=== PATIENT | male | born 1990 | race Caucasian/White ===

== ENCOUNTER 2017-01-18 01:31 | Emergency (ER) | payer OTHER ==
[~2017-01-18] VITALS: Ht 177.8 cm; Wt 77.1 kg
[2017-01-18] MEDS ORDERED: MORPHINE SULF INJ 2 MG/ML SYRINGE 1ML ONE (04:52)
[2017-01-18] MEDS ORDERED: ONDANSETRON HCL 4 MG/2 ML VIAL ONE (04:56)
[2017-01-18] MEDS ORDERED: MORPHINE SULF INJ 2 MG/ML SYRINGE 1ML IV ONE (05:00)
[2017-01-18] MEDS ORDERED: TETANUS-DIPTH-ACEL PERTUSSIS 0.5ML SYRG IM ONE (05:15)
[2017-01-18] MEDS ORDERED: cefTRIAXone 1GM/50ML D5W 50 ML IV ONE (05:15)
[2017-01-18] MEDS ORDERED: NEOMYCIN-BACITRACIN-POLYM UNITDOSE PKG TOP OINT TOP ONE (05:15)
[2017-01-18] MEDS ORDERED: BACITRACIN-POLYMYXIN B TOPICAL OINT UD TOP ONE (05:28)
[2017-01-18] MEDS ORDERED: ONDANSETRON HCL 4 MG/2 ML VIAL IV ONE (05:30)
[2017-01-18 05:33] VITALS: BP 130/50
== END 2017-01-18 06:25 | disposition home or self-care (01) ==
LOC: EDBD 01:31 → ER 01:38
DX: S92.354A Nondisplaced fracture of fifth metatarsal bone, right foot, initial encounter for closed fracture (principal); S61.214A Laceration without foreign body of right ring finger without damage to nail, initial encounter; V48.5XXA Car driver injured in noncollision transport accident in traffic accident, initial encounter; Y93.I9 Activity, other involving external motion; Y99.8 Other external cause status; Y92.89 Other specified places as the place of occurrence of the external cause; Z23 Encounter for immunization
CPT/HCPCS: 12042; 29515; 73140; 73630; 90471; 90715; 96365; 96375; 99284; J0696; J2270; J2405; 29125

== ENCOUNTER 2023-10-16 00:22 | Emergency (ER) | payer MEDICAID, OTHER ==
[~2023-10-16] VITALS: Ht 182.9 cm; Wt 100.0 kg
[2023-10-16 02:48] LABS: Basophils # (auto) 0.1 10 ^3/uL (0-0.2); Basophils % (auto) 0.5 % (0.0-2.0); Eosinophils # (auto) 0.3 10 ^3/uL (0-0.8); Eosinophils % (auto) 2.7 % (0.0-7.0); Lymphocytes # (auto) 4.4 10 ^3/uL (0.4-5.4); Lymphocytes % (auto) 44.4 % (10.0-50.0); Mean Corpuscular Hemoglobin 30.1 pg (28.0-32.0); Mean Corpuscular Hgb Conc. 34.9 g/dL (32.0-36.0); Mean Corpuscular Volume 86.3 fL (80.0-100.0); Neutrophils # (auto) 4.2 10 ^3/uL (1.6-8.6); Neutrophils % (auto) 42.4 % (37.0-80.0); Nucleated Red Blood Cells % 0.2 %; Red Blood Cells 5.33 10^6/uL (4.5-5.90); Red Cell Distribution Width 13.1 % (11.8-14.3)
[2023-10-16 03:02] LABS: Alanine Aminotransferase 69 U/L (7-40); Albumin 4.4 g/dL (3.2-4.8); Alkaline Phosphatase 94 U/L (46-116); Anion Gap 6 (5-15); Aspartate Aminotransferase 36 U/L (13-40); BUN/Creatinine Ratio 13.5 (10.0-20.0); Bilirubin, Total 0.4 mg/dL (0.2-1.0); Blood Urea Nitrogen 13 mg/dL (9-23); Calcium 9.5 mg/dL (8.7-10.4); Carbon Dioxide 28 mmol/L (20-30); Chloride 105 mmol/L (98-107); Glucose 140 mg/dL (74-106); Lipase 49 U/L (12-53); Potassium 3.6 mmol/L (3.5-5.1); Sodium 139 mmol/L (136-145)
[2023-10-16 03:03] LABS: Total Protein 6.9 g/dL (5.7-8.2)
[2023-10-16] MEDS: METOCLOPRAMIDE HCL 5MG/ml INJ 2ml VIAL IV ONE (04:20)
[2023-10-16] MEDS: SODIUM CHLORIDE 0.9% 1,000 ML IVB ONE (04:20)
[2023-10-16 04:21] LABS: Partial Thromboplastin Time 25.6 SEC (24.5-34.5); Prothrombin Time 10.6 sec (9.3-11.8)
[2023-10-16] MEDS: MORPHINE SULFATE 4 MG/ML SYR/VIAL IV ONE (04:22)
[2023-10-16] MEDS ORDERED: ACET500T58 PO (04:55)
[2023-10-16] MEDS ORDERED: IBUP-1456 PO (04:55)
[2023-10-16 05:16] VITALS: BP 134/89; PULSE 73; RESP 16; TEMP 97.9; O2SAT 97
== END 2023-10-16 05:16 | disposition home or self-care (01) ==
LOC: ER 00:22
DX: R10.32 Left lower quadrant pain (principal)
CPT/HCPCS: 36415; 74176; 80053; 83690; 84484; 85025; 85610; 85730; 93005; 96361; 96374; 96375; 99285; J2270; J2765; J7030

== ENCOUNTER 2024-01-06 08:31 | Emergency (ER) | payer MEDICAID ==
[~2024-01-06] VITALS: Ht 180.3 cm; Wt 108.7 kg
[~2024-01-06 08:31] MED LIST: ACET500T58 PO; IBUP-1456 PO
[2024-01-06 08:57] VITALS: BP 134/87; PULSE 97; RESP 18; TEMP 97.8; O2SAT 97
[2024-01-06] MEDS ORDERED: IBUP-1455 PO (09:12)
[2024-01-06] MEDS ORDERED: CYCL-837 PO (09:12)
== END 2024-01-06 09:31 | disposition home or self-care (01) ==
LOC: ER 08:31
DX: S29.012A Strain of muscle and tendon of back wall of thorax, initial encounter (principal); X50.0XXA Overexertion from strenuous movement or load, initial encounter; Y93.89 Activity, other specified; Y92.89 Other specified places as the place of occurrence of the external cause; Y99.8 Other external cause status

== ENCOUNTER 2024-11-18 09:11 | Emergency (ER) | payer MEDICAID, OTHER ==
[~2024-11-18] VITALS: Ht 180.3 cm; Wt 111.1 kg
[~2024-11-18 09:11] MED LIST changes: +CYCL-837 PO; +IBUP-1455 PO
[2024-11-18 10:02] VITALS: BP 135/95; PULSE 89; RESP 18; TEMP 98; O2SAT 100
[2024-11-18] MEDS: KETOROLAC TROMETH 60MG/2ML VIAL IM ONE (10:40)
[2024-11-18] MEDS: HYDROcodone-ACET 5/325MG TAB PO ONE (10:41)
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
--- NOTE | 2024-11-18 11:23 | DVH ---
EXAM: CT CERVICAL WITHOUT CONTRAST INDICATION: [facility] EXAM DATE: 11/18/2024 10:41 AM COMPARISON: None TECHNIQUE: Noncontrast axial CT images of the cervical spine were performed. Sagittal and coronal ref ormatted images were obtained. Radiation optimization: All CT scans at this facility use at least one of these dose optimization techniques: automated exposure control mA and/or kV adjustment per patie nt size (includes targeted exams where dose is matched to clinical indication) or iterative reconstr uction. Radiation Dose Information: CT Dose: CTDI volume is 25.81 mGy. Dose-length product is 677.04 mGy*cm FINDINGS: No fracture or listhesis of the cervical spine. The cervical spinal canal is congenitally narrow. The re is xrgz-ko-eaigekfi cervical degenerative disc disease, greatest at C5-C6. The AP dimension of the spinal canal is narrowed to 8 mm at C2-C3, 7.5 mm at C3-C4, 9 mm at C4-C5, 9 mm at C5-C6, 9 mm at C6 -C7. No significant neural foraminal stenosis at any level in the cervical spine. There is slight rev ersal of normal cervical lordosis. There is barton tonsillar hypertrophy without significant airway narr owing. There is mild mucosal thickening of the left maxillary sinus. There is at least 1 left mandibu lar dental cavity (image 46, series 602). IMPRESSION: 1. No fracture of the cervical spine. 2. 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 3. Tonsillar hypertrophy without significant airway narrowing. 4. At least 1 left mandibular dental cavity. Recommend outpatient dental consultation. 5. Mild left maxillary sinus disease. The paranasal sinuses are not fully imaged here.
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
--- NOTE | 2024-11-19 10:02 | ECG ---
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
== END 2024-11-18 11:49 | disposition home or self-care (01) ==
LOC: EDBD 09:11 → ER 09:11
DX: S13.4XXA Sprain of ligaments of cervical spine, initial encounter (principal); R07.89 Other chest pain; R51.9 Headache, unspecified; Z79.899 Other long term (current) drug therapy; V43.52XA Car driver injured in collision with other type car in traffic accident, initial encounter; Y93.89 Activity, other specified; Y92.410 Unspecified street and highway as the place of occurrence of the external cause; Y99.8 Other external cause status
CPT/HCPCS: 70450; 71250; 72125; 72131; 93005; 96372; 99285; J1885